=== PATIENT | female | born 1995 | race Caucasian/White ===

== ENCOUNTER 2024-08-07 11:17 | Emergency (ER) | payer OTHER, SELFPAY ==
[2024-08-07 11:22] VITALS: BP 164/108; PULSE 118; TEMP 37.5; O2SAT 96; BMI 44.6
[2024-08-07 11:26] VITALS: BP 130/88
[2024-08-07] MEDS: PREDNISONE 20 MG TABLET 60 MG PO (11:45)
[2024-08-07] MEDS: IPRATROPIUM/ALBUTEROL SULFATE 3 ML AMPUL.NEB IH (11:50)
[2024-08-07 11:51] VITALS: PULSE 124; O2SAT 94
[2024-08-07 11:51] LABS: Influenza Virus A Antigen Negative; Influenza Virus B Antigen Negative; Internal Control Within Normal Limits; SARS-CoV-2 Ag NEGATIVE (NEGATIVE)
--- NOTE | 2024-08-07 12:12 | ED_ITS ---
HPI HPI - General Adult General Chief complaint: Shortness of Breath/Dyspnea Stated complaint: COVID SYMPTOMS ASTHMA SOB Time Seen by Provider: 08/07/24 11:26 Source: patient Mode of arrival: walk-in Limitations: no limitations History of Present Illness HPI narrative: 28-year-old female to the emergency department with chief complaint of cough and shortness of breath. Patient has a history of asthma. Her family members have been sick with cough, nasal congestion, sore throat at home which she became sick with the last 24 hours. She reports she has been using breathing treatments which helped only temporarily. She is concerned she is in an asthma exacerbation. She denies any chest pain. No fever, sweats, chills. Cough is nonproductive. She denies . Related Data Home Medications ?Medication ?Instructions ?Recorded ?Confirmed albuterol sulfate 90 mcg/actuation inhalation 08/07/24 aerosol inhaler fluticasone furoate 200 inhalation 08/07/24 mcg-vilanterol 25 mcg/dose inhalation powder (Breo Ellipta) Previous Rx's ?Medication ?Instructions ?Recorded albuterol sulfate 2.5 mg/3 mL 2.5 mg (3 mL) inhalation Q4H PRN 08/07/24 (0.083 %) solution for nebulization shortness of breath or wheezing #90 mL albuterol sulfate 90 mcg/actuation 2 inh inhalation Q4H PRN shortness 08/07/24 aerosol inhaler of breath or wheezing #8.5 grams azithromycin 250 mg tablet See Rx Instructions PO .COMPLEX #6 08/07/24 tabs ugdlmyxhfolpbye-nsmuevghayensiz-QS 5 ml PO Q4H PRN cold symptoms #118 08/07/24 2 mg-30 mg-10 mg/5 mL oral syrup mL (Bromfed DM) prednisone 20 mg tablet 60 mg (3 x 20 mg) PO DAILY 5 days 08/07/24 #15 tabs Allergies Allergy/AdvReac Type Severity Reaction Status Date / Time No Known Drug Allergies Allergy Verified 08/07/24 11:22 Opioid HPI Opioid Management Most Recent Opioid Data: No Data to Display Review of Systems ROS Status of ROS 10 or more systems reviewed and unremark able except as noted in history and below PFSH PFSH Social History Little interest or pleasure in doing things: not at all Feeling down, depressed, or hopeless: not at all Exam Narrative Exam Narrative: VITALS: I have reviewed the triage vital signs. GENERAL: Well developed, well appearing adult in no acute distress. NEURO: Alert and oriented. Moves all extremities. Face is symmetric and expressive. EYES: PERRL. No scleral icterus or conjunctival injection. No discharge. HENT: Normocephalic, atraumatic. Hearing is grossly intact. Nares grossly patent and without discharge. Mucous membranes moist. NECK: No JVD. Patient moves neck without restriction. CARDIO: Rhythm regular. Normal rate. No murmur, rub, or gallop. Pulses equal bilaterally in the upper and lower extremity. No lower extremity edema. PULM: Trace wheezes throughout. No conversational dyspnea. No splinting, stridor, or accessory muscle use. GI/: Abdomen is soft and non-tender. Normoactive bowel sounds. EXTREMITIES: Symmetric muscle bulk. No joint swelling. No clubbing, cyanosis, or deformity. SKIN: Warm and dry. Normal turgor. No rash or lesions appreciated. PSYCH: Mood, affect, and interaction is appropriate to the setting. Constitutional Vital Signs, click to edit/add: Last Vital Signs Temp 99.5 F 08/07/24 11:22 Pulse 124 H 08/07/24 11:51 Resp 32 H 08/07/24 11:22 BP 130/88 08/07/24 11:26 Pulse Ox 94 L 08/07/24 11:51 O2 Del Method Room Air 08/07/24 11:51 Course Vital Signs Vital signs: Vital Signs Temperature 99.5 F 08/07/24 11:22 Pulse Rate 118 H 08/07/24 11:22 Respiratory Rate 32 H 08/07/24 11:22 Blood Pressure 164/108 H 08/07/24 11:22 Pulse Oximetry 96 08/07/24 11:22 Oxygen Delivery Method Room Air 08/07/24 11:22 Temperature 99.5 F 08/07/24 11:22 Pulse Rate 124 H 08/07/24 11:51 Respiratory Rate 32 H 08/07/24 11:22 Blood Pressure 130/88 08/07/24 11:26 Pulse Oximetry 94 L 08/07/24 11:51 Oxygen Delivery Method Room Air 08/07/24 11:[address] [facility] Narrative Medical decision making narrative: 28-year-old female to the emergency department with chief complaint of cough, shortness of breath. She is wheezing on exam. Vitals reviewed. Chest x-ray and COVID/flu swabs are ordered. DuoNeb treatment as well as prednisone ordered. Chest x-ray without acute findings. Swabs are negative. Patient felt significantly improved after the DuoNeb treatment. No increased work of breathing, normal vitals except for some tachycardia which is likely related to the albuterol itself. She reports she continues to have some panic when she gets into coughing fits and feels short of breath. Patient feels comfortable with discharge and continued therapy at home. Bromfed prescribed for the cough. there is some atypical pneumonia in the community at this time. Will place her on azithromycin as a precaution. q4h albuterol. Will continue prednisone for 5 days. Return precautions were discussed. All questions were answered. The patient was discharged home Lab Data Lab results reviewed: Yes I reviewed the patient's lab results Labs: Lab Results 08/07/24 Range/Units 11:28 Influenza Type A Ag Negative Influenza Type B Ag Negative SARS-CoV-2 Ag (CV2AG) Negative (NEGATIVE) Imaging Data Chest x-ray: Attestation: I have reviewed the pertinent imaging results. Discharge Plan Discharge Chief Complaint: Shortness of Breath/Dyspnea Clinical Impression: Asthma with acute exacerbation, Atypical pneumonia Patient Disposition: Home, Self-Care Time of Disposition Decision: 12:16 Condition: Good Mode of Transportation: Private Vehicle Prescriptions / Home Meds: New prednisone 20 mg tablet 60 mg PO DAILY 5 Days Qty: 15 0RF evdndkjgjqyuqtp-wyaymsaib-OZ [Bromfed DM] 2-30-10 mg/5 mL syrup 5 ml PO Q4H PRN (Reason: cold symptoms) Qty: 118 0RF azithromycin 250 mg tablet See Rx Instructions .ROUTE .COMPLEX Qty: 6 0RF Rx Instructions: For 250 mg dose pack: take 500 mg today (day 1), then 250 mg for 4 days (days 2-5) albuterol sulfate 2.5 mg /3 mL (0.083 %) solution for nebulization 2.5 mg inhalation Q4H PRN (Reason: shortness of breath or wheezing) Qty: 90 0RF albuterol sulfate 90 mcg/actuation HFA aerosol inhaler 2 inh inhalation Q4H PRN (Reason: shortness of breath or wheezing) Qty: 8.5 0RF No Action albuterol sulfate 90 mcg/actuation HFA aerosol inhaler INHALATION fluticasone furoate-vilanterol [Breo Ellipta] 200-25 mcg/dose blister with device INHALATION Print Language: Kittitian Instructions: Asthma (ED), How to Use a Metered-Dose Inhaler (ED), Upper Respiratory Infection (ED), How to Use a Nebulizer (ED) Additional Instructions: Call the office of your primary care doctor to arrange for follow-up within the above-stated timeframe. Your ED visit was focused on your acute issue and does not replace primary care. You should review your labs, imaging, and diagnoses from this ED visit with your primary care physician. There may be non-emergent/ incidental findings that need further evaluation. You should review your vital signs including blood pressure with your PCP. If you were prescribed medications you should discuss possible side-effects and drug interactions with your pharmacist. Call 911 or go to the nearest Emergency Department if you develop any new or worsening symptoms. Seek immediate medical attention if you develop: worsening shortness of breath, difficulty breathing, chest pain, nausea, vomiting, weakness, numbness, tingling, excessive sweating, loss of motion in your arms or legs, or any new or worsening symptoms.
== END 2024-08-07 12:45 | disposition home or self-care (01) ==
PROVIDERS: Emergency Provider Student in an Organized Health Care Education/Training Program; PCP Nurse Practitioner
DX: J45.901 Unspecified asthma with (acute) exacerbation (principal); J18.9 Pneumonia, unspecified organism; R05.9 Cough, unspecified; R06.02 Shortness of breath
CPT/HCPCS: 71046; 87804; 87811; 94640; 99284; J7512